=== PATIENT | female | born 1995 | race Caucasian/White ===

== ENCOUNTER 2018-11-18 16:06 | Outpatient (CLI) | payer BC ==
[~2018-11-18] VITALS: Ht 162.6 cm; Wt 53.6 kg
[2018-11-18] MEDS ORDERED: PRENATA1 CTB PO (16:22)
[2018-11-18] MEDS ORDERED: ASPIRIN 81M81 MG/TA2 PO (16:23)
[2018-11-18] MEDS ORDERED: NATURAL IRON65 MG (16:23)
--- NOTE | 2018-11-18 16:24 | NUR ---
Patient ambulatory to unit accompanied by spouse. Patient states around 1415 when she sat down on toilet she noted a big gush of fluid and now has felt some fluid leaking. Patient denies any vaginal bleeding and states baby has been active. FHR and contraction monitors placed and explained. VS stable. 29.6 weeks gestation, G6 L1, denies any complications with this . SVE closed/thick/high, amniotest negative. No fluid noted on glove after SVE. Patient very anxious and worried that she will deliver early like her last delivery.
--- NOTE | 2018-11-18 16:40 | NUR ---
1647: Patient off monitor to ambulate. 1710: SVE-Closed/high and amniotest negative.
[2018-11-18 16:47] VITALS: BP 96/54; PULSE 88; TEMP 97.9
[2018-11-18 17:24] VITALS: BP 95/57; PULSE 82
== END 2018-11-18 18:16 | disposition home or self-care (01) ==
LOC: LDRO 16:06 → LDR 16:31 → LDRO 17:30
DX: Z34.83 Encounter for supervision of other normal pregnancy, third trimester (principal); Z3A.29 29 weeks gestation of pregnancy
CPT/HCPCS: OP

== ENCOUNTER 2018-12-08 08:38 | Outpatient (CLI) | payer BC ==
[~2018-12-08] VITALS: Ht 162.6 cm; Wt 55.0 kg
[~2018-12-08 08:38] MED LIST: ASPIRIN 81M81 MG/TA2 PO; NATURAL IRON65 MG; PRENATA1 CTB PO
--- NOTE | 2018-12-08 08:50 | NUR ---
Patient arrives ambulatory with complaints of cramping, back pain, and frequency of urination. Patient states she has some burning with urination occasionally. Denies ROM or vaginal bleeding. Reports normal movement. Patient changes into gown, EFM explained and placed. VSS. SVE closed/thick/high. Patient repositoned [facility] and updated on plan of care. Assessment completed. Patient states she has been vomiting on and off for two days, but is able to keep down water now. 15- Dr. Velazco notified regarding patient arrival, complaint, and history reviewed. SVE closed/thick/high. Urine collected upon arrival. Orders to send UA. If normal patient may be discharged. No further orders.
[2018-12-08 09:04] VITALS: BP 100/63; PULSE 87; TEMP 97.2
[2018-12-08 09:26] LABS: COLLECTION METHOD CLEAN CATCH
[2018-12-08 09:34] LABS: PH 7 (5-8); SQUAMOUS EPITHELIAL 0-2 /hpf; URINE APPEARANCE Clear; URINE BACTERIA None Seen /hpf; URINE BILIRUBIN Negative (NEGATIVE); URINE BLOOD Negative (NEGATIVE); URINE COLOR Yellow; URINE GLUCOSE Negative (NEGATIVE); URINE KETONE Negative (NEGATIVE); URINE LEUKOCYTE ESTERASE Trace (NEGATIVE); URINE NITRATE Negative (NEGATIVE); URINE PROTEIN(semi-quant) Negative (NEGATIVE); URINE RBC 0-2 /hpf; URINE UROBILINOGEN Negative (NEGATIVE)
[2018-12-08 09:50] VITALS: BP 100/63; PULSE 87; TEMP 97.9
--- NOTE | 2018-12-08 09:53 | NUR ---
Patient given discharge instructions. Denies questions or concerns. leaves ambulatory.
== END 2018-12-08 09:53 | disposition home or self-care (01) ==
LOC: LDRO 08:38 → LDR 08:50 → LDRO 09:53
PROVIDERS: Obstetrics & Gynecology
DX: O99.89 Other specified diseases and conditions complicating pregnancy, childbirth and the puerperium (principal); R25.2 Cramp and spasm; M54.9 Dorsalgia, unspecified; Z3A.32 32 weeks gestation of pregnancy
CPT/HCPCS: OP

== ENCOUNTER 2018-12-14 01:50 | Outpatient (CLI) | payer BC ==
[~2018-12-14] VITALS: Ht 162.6 cm; Wt 56.8 kg
[2018-12-14 02:16] VITALS: BP 108/63; PULSE 93; TEMP 97.8
--- NOTE | 2018-12-14 02:28 | NUR ---
LABOR CHECK, ABD PAIN SINCE 2299
== END 2018-12-14 05:18 ==
LOC: LDRO 01:50 → LDR 01:53 → LDRO 05:18 → LDR 12-15 09:12
DX: O99.89 Other specified diseases and conditions complicating pregnancy, childbirth and the puerperium (principal); R10.30 Lower abdominal pain, unspecified; Z3A.33 33 weeks gestation of pregnancy
CPT/HCPCS: OP; J3105

== ENCOUNTER 2019-01-12 14:35 | Outpatient (CLI) | payer BC ==
[~2019-01-12] VITALS: Ht 162.6 cm; Wt 57.7 kg
--- NOTE | 2019-01-12 14:45 | NUR ---
1445-G6L1 [address] LOMAS TO UNIT WITH MOTHER COMPLAINTS OF POSSIBLE SROM AT 2145 AND SOME TRICKLING OFF AND ON SINCE. DENIES CONTRACTIONS REPORTS GOOD MOVEMENT, DENIES VAGINAL BLEEDING. VSS, SEE FLOW RECORD. 1450-AMNITEST NEG, SVE 250/-3, HEAD BALLOTABLE AND NO FLUID NOTED ON EXAM. CRISTI PAD TESTED FOR AMNIOTIC FLUID, NEGATIVE RESULT. UPDATED PATIENT. PATIENT VERY CONCERNED WHY SHE WOULD FEEL MOISTURE, EXPLAINED INCREASED VAGINAL DISCHARGE AND ALLOWED PATIENT TO SEE GLOVE WITH DISCHARGE ON GLOVE AND NOT FLUID. 1511-UPDATED DR. HORN ON PATIENT AND REVIEWED STRIP. ORDERS TO DISCHARGE PATIENT HOME. 1530-IN TO TAKE PATIENT OFF EFM. PATIENT REPORTS SITTING ON EDGE OF BED AND NOTICING "MOISTURE" PATIENT UP TO BATHROOM AND BACK TO BED. ANITEST NEG, SVE UNCHANGED. BED TESTED, NEGATIVE RESULT. FLUID ON FLOOR SWABED INCONCLUSIVE CHANGE IN SWAB. DR. HORN UPDATED. MD GIVES ORDER TO DISCHARGE HOME AND RETURN WITH CONCERNS.
[2019-01-12 14:56] VITALS: BP 111/78; PULSE 98; TEMP 97.6
[2019-01-12 15:00] VITALS: BP 111/78; PULSE 98; TEMP 97.6
--- NOTE | 2019-01-12 15:45 | NUR ---
1545-REVIEWED MD ORDERS WITH PATIENT AND REVIEWED EARLY LABOR AND DISCOMFORTS OF WITH PATIENT. 1555-AMBULATORY OFF UNIT WITH MOTHER.
== END 2019-01-12 15:55 | disposition home or self-care (01) ==
LOC: LDRO 14:35 → LDR 14:45 → LDRO 15:55
DX: N89.8 Other specified noninflammatory disorders of vagina (principal); Z3A.37 37 weeks gestation of pregnancy
CPT/HCPCS: OP

== ENCOUNTER 2019-01-15 23:34 | Inpatient (IN) | payer BC ==
[~2019-01-15] VITALS: Ht 162.6 cm; Wt 59.1 kg
--- NOTE | 2019-01-15 23:40 | NUR ---
2340- PATIENT ARRIVES TO L&D WITH C/O CTX AND POSSIBLE SROM. PATIENT IS A G6L1, 38.1 WEEKS TODAY. WAS SEEN IN THE OFFICE TODAY AND WAS 3CM/70% 234- EFM APPLIED AT THIS TIME. 7- SVE 3-4/75/-2. VSS. 0000- CONTRACTIONS PALPATE MOD/FIRM AND ARE Q 1-4 MINUTES.
[2019-01-15 23:51] VITALS: BP 131/80; PULSE 92; TEMP 98
[2019-01-16] VITALS (38 sets, daily range): BP systolic 91–140; BP diastolic 50–84; PULSE 56–113; TEMP 97.6–98.4
[2019-01-16 00:59] LABS: BASO # 0.1 (0.0-0.2); BASO % 0.5 % (0.0-2.0); EOS % 0.3 % (0-4.0); GRAN # 7.6 (1.4-6.5); GRAN % 79.8 % (42.2-75.2); HEMATOCRIT 38.4 % (37.0-47.0); HEMOGLOBIN 12.9 g/dl (12.5-16.0); LYMPH # 1.3 (1.2-3.4); LYMPH % 13.1 % (20.0-51.0); MEAN CELL VOLUME 88 fl (80.0-100.0); MEAN CORPUSCULAR HEMOGLOBIN 30 pg (27.0-31.0); MEAN CORPUSCULAR HGB CONC 34 g/dl (33.0-37.0); MEAN PLATELET VOLUME 12.6 fl (7.4-10.4); MONO # 0.5 (0.1-0.6); MONO % 5.7 % (1.7-9.3); PLATELET COUNT 131 K/mm3 (130-400); RED BLOOD COUNT 4.36 M/mm3 (4.10-5.30); REDCELL DISTRIBUTION WIDTH-CV 12.8 % (11.5-14.5)
--- NOTE | 2019-01-16 07:37 | NUR ---
Pt states increasing pressure. SVE per this RN C/+2. Dr. Velazco notified. See physician notification. 0741-Dr. Pedraza at bedside for delivery. Pt prepped for delivery. Begins pushing. 0753- of viable female attended by Dr. Pedraza. NCx2. Cord clamped x 2 and cut from umbilicus. dried and placed on mother's abdomen. Care of to Ruby Brewer RN. Apgars 8 0756- of placenta. Pitocin bolus infusing. Fundus firm at umbilicus. Bleeding WNL. Perineum intact. Pericare performed. Ice pack applied. Bed locked in low position. Call light within reach. Pt updated on POC. Safety reviewed. No questions or concerns at this time.
[2019-01-17 03:20] VITALS: BP 106/71; PULSE 65; TEMP 97.8
[2019-01-17 08:10] VITALS: BP 99/63; PULSE 72; TEMP 97.7
[2019-01-17] MEDS ORDERED: MOTRIN 600600 MG/TAB PO (08:32)
[2019-01-17] MEDS ORDERED: PERCOCET 325 MG1 TA2 PO (08:32)
--- NOTE | 2019-01-17 09:30 | NUR ---
Initial visit attempt; Nurse with patient, Reliability Engineer left card of congratulations for the of her daughter and information regarding the availability of spiritual care at [place] [facility].
== END 2019-01-17 16:00 | disposition home or self-care (01) | DRG 806 ==
LOC: LDRO 23:34 → LDR 01-16 00:20 → OB 01-16 10:00
PROVIDERS: Obstetrics & Gynecology; ADMIT Obstetrics & Gynecology
PROC: 10E0XZZ Delivery of Products of Conception, External Approach (ICD-10-PCS; principal; 2019-01-16)
PROC: 10907ZC Drainage of Amniotic Fluid, Therapeutic from Products of Conception, Via Natural or Artificial Opening (ICD-10-PCS; 2019-01-16)
DX: O99.284 Endocrine, nutritional and metabolic diseases complicating childbirth (principal); E72.12 Methylenetetrahydrofolate reductase deficiency; Z37.0 Single live birth; Z3A.38 38 weeks gestation of pregnancy; O99.344 Other mental disorders complicating childbirth; O69.81X0 Labor and delivery complicated by cord around neck, without compression, not applicable or unspecified; O99.354 Diseases of the nervous system complicating childbirth; G43.909 Migraine, unspecified, not intractable, without status migrainosus; F41.0 Panic disorder [episodic paroxysmal anxiety]; F41.9 Anxiety disorder, unspecified; Z79.82 Long term (current) use of aspirin; Z87.11 Personal history of peptic ulcer disease; Z87.442 Personal history of urinary calculi
CPT/HCPCS: J2590; J7120